=== PATIENT | female | born 1980 | race Two or more races ===

== ENCOUNTER 2024-10-31 20:35 | Emergency (ER) | payer OTHER ==
[~2024-10-31] VITALS: Ht 157.5 cm; Wt 68.5 kg
[2024-10-31 20:48] VITALS: BP 123/84; O2SAT 99
[2024-10-31] MEDS ORDERED: TOPROL XL25 M1 (20:59)
[2024-10-31] MEDS ORDERED: NEURONTIN600 M1 PO (20:59)
[2024-10-31] MEDS ORDERED: 0.9 % SODIUM CHLORIDE 250 ML IV STA (21:26)
[2024-10-31] MEDS ORDERED: ONDANSETRON HCL 2 MG/ML VIAL IV STA (21:26)
[2024-10-31] MEDS ORDERED: FAMOTIDINE/PF 20 MG/2 ML VIAL IV STA (21:26)
[2024-10-31] MEDS ORDERED: DEXAMETHASONE SODIUM PHOSPHATE 4 MG/ML VIAL IV STA (21:27)
[2024-10-31] MEDS ORDERED: MECLIZINE HCL 25 MG TABLET PO ONE ×2 (21:30→21:39)
[2024-10-31] MEDS ORDERED: DEXAMETHASONE SODIUM PHOSPHATE 4 MG/ML VIAL ONE (21:39)
[2024-10-31] MEDS ORDERED: FAMOTIDINE/PF 20 MG/2 ML VIAL ONE (21:39)
[2024-10-31] MEDS ORDERED: ONDANSETRON HCL 2 MG/ML VIAL ONE (21:39)
[2024-10-31 22:04] LABS: BASO % 0.7 % (0.1-1.2); EOS # 0.18 (0.04-0.54); EOS % 2.2 % (0.7-7.0); LYMPH # 2.42 (1.18-3.74); LYMPH % 30.2 % (19.3-53.1); MEAN PLATELET VOLUME 9.30 fl (9.4-12.4); MONO # 0.51 (0.24-0.82); MONO % 6.4 % (4.7-12.5); NEUT # 4.81 (1.56-6.13); NEUT % 60.0 % (34.0-71.1); RED CELL DISTRIBUTION WIDTH 19.9 % (11.6-14.4)
[2024-10-31 22:27] LABS: BUN CREA RATIO 11.0 (7.0-25.0); CREATININE SERUM 0.73 mg/dL (0.55-1.02); GFR 85.83; GLUCOSE FASTING 124.0 mg/dL (65-100); OSMOLALITY SERUM 285.0 MOSM/KG (275-295)
== END 2024-10-31 23:27 | disposition home or self-care (01) ==
LOC: ER 20:35
PROVIDERS: General Practice
DX: R42 Dizziness and giddiness (principal); M79.7 Fibromyalgia; I49.9 Cardiac arrhythmia, unspecified
CPT/HCPCS: 36415; 70450; 93005; 96365; 96366; 99283; J2405; J3490